=== PATIENT | male | born 1985 | race Caucasian/White ===

== ENCOUNTER 2018-08-08 09:00 | Emergency (ER) | payer BC, OTHER ==
[2018-08-08 09:47] VITALS: BP 145/72
--- NOTE | 2018-08-08 11:10 | UC ---
UC General HPI - HPI Summary HPI Summary: SEEN AT [facility] ER 2 DAYS AGO FOR A WORK INJURY TO R ANKLE. DX WITH A SPRAIN. STATES ADVISED TO TAKE 1-2 DAYS OFF THEN F/U WITH PRIMARY CARE SO CAME HERE. PT ANKLE IN AIRCAST SPLINT AND HE IS USING CRUTHCES. - History of Current Complaint Chief Complaint: UCLowerExtremity Stated Complaint: WC-RT ANKLE INJURY Time Seen by Provider: 08/08/18 10:46 Hx Obtained From: Patient Pain Intensity: 5 Aggravating: MOVEMENT Associated Signs & Symptoms: Negative: Fever - Allergy/Home Medications Allergies/Adverse Reactions: Allergies Allergy/AdvReac Type Severity Reaction Status Date / Time No Known Allergies Allergy Verified 07/22/18 15:05 PMH/Surg Hx/FS Hx/Imm Hx GI/ History: Gastroesophageal Reflux - Surgical History Surgical History: None - Family History Known Family History: Positive: Non-Contributory - Social History Occupation: Employed Full-time Alcohol Use: Rare Substance Use Type: None Smoking Status (MU): Never Smoked Tobacco - Immunization History Vaccination Up to Date: Yes Review of Systems All Other Systems Reviewed And Are Negative: No Constitutional: Positive: Negative Skin: Positive: Negative Eyes: Positive: Negative ENT: Positive: Negative Respiratory: Positive: Negative Cardiovascular: Positive: Negative Gastrointestinal: Positive: Negative Genitourinary: Positive: Negative Motor: Positive: Negative Neurovascular: Positive: Negative Musculoskeletal: Positive: Other: - PAIN/SWELLING R ANKLE Neurological: Positive: Negative Psychological: Positive: Negative Is Patient Immunocompromised?: No Physical Exam Triage Information Reviewed: Yes Appearance: Well-Appearing Vital Signs: Initial Vital Signs Temp 97.4 F 08/08/18 09:44 Pulse 80 08/08/18 09:44 Resp 15 08/08/18 09:44 BP 145/72 08/08/18 09:44 Pulse Ox 99 08/08/18 09:44 Vital Signs Reviewed: Yes Eyes: Positive: Conjunctiva Clear ENT: Positive: Normal ENT inspection Neck: Positive: Supple, Nontender, No Lymphadenopathy Respiratory: Positive: Lungs clear, Normal breath sounds Cardiovascular: Positive: RRR, No Murmur Abdomen Description: Positive: Nontender, No Organomegaly, Soft Bowel Sounds: Positive: Present Musculoskeletal: Positive: Other: - RLE: HIP, KNEE, ACHILLES AND FOOT NON TENDER WITH NO SWELLLING. MEDIAL AND LATERAL ANKLE WITH MILD SWELLING AND TENDERNESS. FOOT HAS FULL S/V/M FUNCTION. Neurological: Positive: Alert Psychological: Positive: Age Appropriate Behavior Skin Exam: Normal Course/Dx - Course Course Of Treatment: PT NEEDS ONGOING CARE AND LIMITATIONS FOR THIS INJURY THUS I WILL REFER TO ORTHOPEDICS. [facility] [place] CALLED BY MYSELF, THEY WILL SEE PT THIS AFTERNOON. PT ADVISED HE WILL NEED ALL THE COMP INFO AND SHOULD CALL THEM NOW WITH THIS PER THE DISTANCE EDUCATION TEACHER REQUEST. PT DENIES HTN, BP VISIT RELATED - Diagnoses Provider Diagnosis: Acute right ankle pain Discharge - Sign-Out/Discharge Documenting (check all that apply): Patient Departure All imaging exams completed and their final reports reviewed: No Studies - Discharge Plan Condition: Stable Disposition: HOME Patient Education Materials: Ankle Sprain (DC) Referrals: Russel Zapata MD [Medical Doctor] - Additional Instructions: FOLLOW UP TODAY AT 1:30 PM SCHEDULED BY THIS [facility]. CALL THEM NOW WITH ALL OF YOUR WORKERS COMPENSATION INFORMATION. THEY NEED IT BEFORE THE APPOINTMENT. CONTINUE THE CRUTCHES AND SPLINT. DO NOT PUT WEIGHT ON THE ANKLE. - Billing Disposition and Condition Condition: STABLE Disposition: Home
== END 2018-08-08 11:06 | disposition home or self-care (01) ==
LOC: UCCORT 09:00
DX: S99.811D Other specified injuries of right ankle, subsequent encounter (principal); X58.XXXD Exposure to other specified factors, subsequent encounter
CPT/HCPCS: 99211; G0463

== ENCOUNTER 2018-08-22 13:43 | Emergency (ER) | payer BC, OTHER ==
--- OUTSIDE RECORDS SUMMARY | 2018-08-22 13:58 | XMS REPORT | Continuity of Care Document ---
:1985 External Reference #:[id number] Author Name Darren Lopez Care Team Providers Name Role Phone David Rubio DO Primary Care Physician Unavailable Payers Type Date Identification Numbers Payment Provider Subscriber Effective: Policy Number: [id number] Workers Compensation Austin Palomo JR 2018 Onset: 2018 PayID: [id number] Effective: 2018 Policy Number: [id number] BS Facets Austin Palomo JR PayID: [id number] [address] [place] [address] Advance Directives Description No Information Available Problems Description No Information Family History Date Family Member(s) Problem(s) Comments General No Current Problems Social History Type Date Description Comments Sex Unknown Marital Status 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 Use Occasionally consumes alcohol Tobacco Use Start: Unknown Patient has never smoked Smoking Status Reviewed: 08/08/18 Patient has never smoked Allergies, Adverse Reactions, Alerts Description No Known Drug Allergies Medications Medication Date Status Form Strength Qnty SIG Indications Ordering Provider Vitamin C Active Capsules 500mg 90caps 1 by mouth Russel Carlton 018 every day MD Jodi Ofloxacin Active Solution 0.3% 3 drops Unknown (Otic) 000 affected ear twice a day x7 days Ibuprofen Active Capsules 200mg as needed Unknown 000 Multivitamin Active Chewtabs once a day Unknown Adult 000 Immunizations Description No Information Available Vital Signs Date Vital Result Comment 08/08/2018 11:38am Height 69 inches 5'9" Weight 212.00 lb BP Systolic Sitting 126 mmHg BP Diastolic Sitting 76 mmHg Respiratory Rate 16 /min Pain Level 9 BMI (Body Mass Index) 31.3 kg/m2 Results Description No Information Available Procedures Description No Information Available Encounters Description No Information Available Plan of Treatment Future Appointment(s):08/15/2018 10:30 am - Russel Zapata MD at [facility] AT [place]/30/2018 - Russel Zapata, [id number] Sprain of unspecified ligament of right ankle, initial encouFollow up:Follow up: 1 week
--- OUTSIDE RECORDS SUMMARY | 2018-08-22 13:58 | XMS REPORT | Continuity of Care Document ---
:1985 External Reference #:[id number] Author Name Stephy Renee Care Team Providers Name Role Phone David Rubio DO Primary Care Physician Unavailable Payers Type Date Identification Numbers Payment Provider Subscriber Effective: Policy Number: [id number] [employer] Austin Palomo JR 2018 PayID: [id number] [address] [address] [place] [id number] Effective: 2018 Policy Number: Workers Compensation Austin Palomo JR [id number] Onset: 2018 PayID: [id number] Advance Directives Description No Information Available Problems Description No Information Family History Date Family Member(s) Problem(s) Comments General No Current Problems Social History Type Date Description Comments Sex Unknown Marital Status 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 Tobacco Use Start: Unknown Patient has never smoked Smoking Status Reviewed: 08/14/18 Patient has never smoked Allergies, Adverse Reactions, [...] Available Vital Signs Date Vital Result Comment 08/14/2018 11:31am Height 69 inches 5'9" Weight 212.00 lb BP Systolic Sitting 126 mmHg BP Diastolic Sitting 68 mmHg Respiratory Rate 17 /min Pain Level 4 BMI (Body Mass Index) 31.3 kg/m2 08/08/2018 11:38am Height 69 inches 5'9" Weight 212.00 lb BP Systolic Sitting 126 mmHg BP Diastolic Sitting 76 mmHg Respiratory Rate 16 /min Pain Level 9 BMI (Body Mass Index) 31.3 kg/m2 Results Description No Information Available Procedures Description No Information Available Encounters Type Date Location Provider Dx Diagnosis Office Visit 08/08/2018 Orthopedic Russel Zapata, S93.401A Sprain of 1:[facility] [place] unspecified [place] ligament of right ankle, init encntr Plan of Treatment Future Appointment(s):09/05/2018 1:45 pm - Russel Zapata MD at [facility] AT [place]29/06/2018 - Russel Zapata, [id number] Sprain of unspecified ligament of right ankle, subsequent enNew Therapy:Physical TherapyFollow up:Follow up: 3 weeks
[2018-08-22 14:06] VITALS: BP 128/71
--- NOTE | 2018-08-22 14:17 | UC ---
UC General HPI - HPI Summary HPI Summary: L EAR DISCOMFORT/PRESSURE X 2 WEEKS. WAS IN ER FOR ANKLE INJURY AND THEY TX THE EAR WITH DROPS BUT STILL NOT BETTER AFTER 2 WEEKS. ADMITS DROPS 4X'S DAILY BUT HE ONLY GETS THEM IN 2X'S DAILY. NO URI OR FEVER. - History of Current Complaint Chief Complaint: UCEar Stated Complaint: LEFT EAR COMPLAINT Time Seen by Provider: 08/22/18 14:10 Hx Obtained From: Patient Onset/Duration: Gradual Onset Timing: Constant Pain Intensity: 4 Associated Signs & Symptoms: Negative: Fever, Headache - Allergy/Home Medications Allergies/Adverse Reactions: Allergies Allergy/AdvReac Type Severity Reaction Status Date / Time No Known Allergies Allergy Verified 07/22/18 15:05 PMH/Surg Hx/FS Hx/Imm Hx GI/ History: Gastroesophageal Reflux - Surgical History Surgical History: None - Family History Known Family History: Positive: Non-Contributory - Social History Lives: With Family Alcohol Use: Rare Substance Use Type: None Smoking Status (MU): Never Smoked Tobacco - Immunization History Vaccination Up to Date: Yes Review of Systems All Other Systems Reviewed And Are Negative: Yes Constitutional: Positive: Negative Skin: Positive: Negative Eyes: Positive: Negative ENT: Positive: Ear Ache - L Respiratory: Positive: Negative Cardiovascular: Positive: Negative Gastrointestinal: Positive: Negative Genitourinary: Positive: Negative Motor: Positive: Negative Neurovascular: Positive: Negative Neurological: Positive: Negative Psychological: Positive: Negative Physical Exam Triage Information Reviewed: Yes Appearance: Well-Appearing Vital Signs: Initial Vital Signs Temp 99.0 F 08/22/18 14:03 Pulse 74 08/22/18 14:03 Resp 16 08/22/18 14:03 BP 128/71 08/22/18 14:03 Pulse Ox 98 08/22/18 14:03 Vital Signs Reviewed: Yes Eyes: Positive: Conjunctiva Clear ENT: Positive: Pharynx normal, TMs normal - R, TM red - L(slight) with slight canal erythema as well., Other - no auricular adenopathy.. Negative: Nasal congestion, Nasal drainage Neck: Positive: Supple, Nontender, No Lymphadenopathy Respiratory: Positive: Lungs clear, Normal breath sounds Cardiovascular: Positive: RRR, No Murmur Abdomen Description: Positive: Nontender, No Organomegaly, Soft Bowel Sounds: Positive: Present Musculoskeletal: Positive: ROM Intact Neurological: Positive: Alert Psychological: Positive: Age Appropriate Behavior Skin Exam: Normal Course/Dx - Course Course Of Treatment: will cover for OM and OE. will d/c prior ear drops and tx with ciprodex and amoxicillin. - Diagnoses Provider Diagnosis: Otalgia of left ear Discharge - Sign-Out/Discharge Documenting (check all that apply): Patient Departure All imaging exams completed and their final reports reviewed: No Studies - Discharge Plan Condition: Stable Disposition: HOME Prescriptions: Amoxicillin PO (*) [Amoxicillin 875 MG (*)] 875 mg PO BID 7 Days #14 tab Ciproflox/Dexameth OTIC.SUSP* [Ciprodex OTIC.SUSP*] 4 drop .SEE ORDER BID #1 btl Patient Education Materials: Earache (ED) Referrals: David Rubio DO [Primary Care Provider] - 7 Days Additional Instructions: STOP THE CURRENT EAR DROPS - Billing Disposition and Condition Condition: STABLE Disposition: Home
== END 2018-08-22 15:23 | disposition home or self-care (01) ==
LOC: UCCORT 13:43
DX: H92.02 Otalgia, left ear (principal)
CPT/HCPCS: 99212; G0463

== ENCOUNTER 2019-07-25 17:21 | Emergency (ER) | payer BC, OTHER ==
--- OUTSIDE RECORDS SUMMARY | 2019-07-25 17:29 | XMS REPORT | Continuity of Care Document ---
:1985 External Reference #:[id number] Author Name FANY Rivera Address [address] [place] [address] Problems Description No Information Available Social History Type Date Description Comments Sex Unknown Tobacco Use Start: Unknown Patient has never smoked Smoking Status Reviewed: 10/01/18 Patient has never smoked Seat Belt/Car Seat Always uses seat belt Allergies, Adverse Reactions, Alerts Description No Known Drug Allergies Medications Active Medications SIG Qnty Indications Ordering Provider Date Esomeprazole 1 by mouth every 90caps K29.00 David H. 05/20/2017 Magnesium day Tunick, DO 40mg Capsules DR Vitamin D 1 by mouth every Unknown (Cholecalciferol) day 1000Unit Capsules Vitamin C 1 by mouth twice Unknown 1000mg a day Tablets Multivitamin Adult 1 by mouth every Unknown day Tablets Fish Oil 1 by mouth as Unknown Capsules directed Immunizations CPT Code Status Date Vaccine Lot # [id number] Given 04/10/2019 Adacel (TdaP) [id number] Vital Signs Date Vital Result Comment 07/19/2019 12:33pm Weight 209.12 lb Height 69 inches 5'9" BP Systolic 118 mmHg LG Cuff BP Diastolic 64 mmHg LG Cuff Body Temperature 97.8 F Heart Rate 54 /min BMI (Body Mass Index) 30.9 kg/m2 Z68.30 A, 30.0-30.9 O2 % BldC Oximetry 95 % 11/23/2018 11:11am Weight 221.50 lb Height 69 inches 5'9" BP Systolic 110 mmHg lg cuff BP Diastolic 70 mmHg lg cuff Body Temperature 97.1 F Heart Rate 50 /min BMI (Body Mass Index) 32.7 kg/m2 Z68.32 A, 32.0-32.9 O2 % BldC Oximetry 96 % Results Description No Information Available Procedures Description No Information Available Medical Devices Description No Information Available Encounters Type Date Location Provider Dx Diagnosis Office Visit 07/19/2019 Walk-In,Weekend Petra Rosariojay J00 Acute nasopharyngitis 12:10p [facility] [common cold] Z68.30 Body mass index (BMI) 30.0-30.9, adult Assessments Date Code Description Provider 07/19/2019 J00 Acute nasopharyngitis [common cold] PetraKATY EstradaC 07/19/2019 Z68.30 Body mass index (BMI) 30.0-30.9, adult FANY Rivera 04/10/2019 Z23 Encounter for immunization David Rubio, DO Plan of Treatment 07/19/2019 - TRISTON Rivera-CJ00 Acute nasopharyngitis [common cold]Comments: Strep negative.Recommend supportive measures: Cool mist humidified air, Saline to nose, Honey for cough, Increase fluid intake and rest as much as possible with head elevated.May use Mucinex, Tylenol, Motrin as directed. Follow up with PCP within 1 week if s/s worsen/persist.Z68.30 Body mass index (BMI) 30.0-30.9, adult Functional Status Description No Information Available Mental Status Description No Information Available Referrals Description No Information Available
[2019-07-25 17:48] VITALS: BP 129/77
[2019-07-25] MEDS ORDERED: Amoxicillin PO (*) 500 MG CAP PO ONE (19:10)
[2019-07-25] MEDS ORDERED: Ibuprofen TAB* 600 MG PO ONE (19:10)
--- NOTE | 2019-07-25 19:15 | UC ---
Throat Pain/Nasal Paul HPI - HPI Summary HPI Summary: C/O URI sx x 10 days now with worsening frontal sinus pain and chills. No SOB with cough. - History of Current Complaint Chief Complaint: UCGeneralIllness Stated Complaint: HEADACHE, SINUS PRESSURE, WEAK,COUGH Time Seen by Provider: 07/25/19 19:01 Hx Obtained From: Patient Onset/Duration: Sudden Onset, Lasting Days - 10, Worse Since - today Severity: Moderate Pain Intensity: 7 Cough: Nonproductive Associated Signs & Symptoms: Positive: Sinus Discomfort, Nasal Discharge, Fever - Allergies/Home Medications Allergies/Adverse Reactions: Allergies Allergy/AdvReac Type Severity Reaction Status Date / Time No Known Allergies Allergy Verified 07/25/19 17:48 Home Medications: Home Medications Dm/Acetaminophen/Doxylamine [Night Cold-Flu Relief Liq Gel] 1 each PO DAILY [History Confirmed 07/25/19] Multivitamin [Multivitamins] 1 each PO DAILY 07/25/19 [History Confirmed ] [place]-3/Dha/Epa/Fish Oil [Fish Oil 1,000 mg Softgel] 1,000 mg PO DAILY 07/25/19 [History Confirmed 07/25/19] PMH/Surg Hx/FS Hx/Imm Hx Previously Healthy: Yes - Surgical History Surgical History: None - Family History Known Family History: Positive: Diabetes, Non-Contributory - Social History Occupation: Employed Full-time Lives: With Family Alcohol Use: Rare Substance Use Type: None Smoking Status (MU): Never Smoked Tobacco - Immunization History Vaccination Up to Date: Yes Review of Systems All Other Systems Reviewed And Are Negative: Yes Constitutional: Positive: Fever, Chills, Fatigue ENT: Positive: Nasal Discharge, Sinus Pain/Tenderness Respiratory: Positive: Cough Physical Exam Triage Information Reviewed: Yes Appearance: Well-Nourished, Ill-Appearing, Pain Distress - mild Vital Signs: Initial Vital Signs Temp 99.7 F 07/25/19 17:45 Pulse 82 07/25/19 17:45 Resp 16 07/25/19 17:45 BP 129/77 07/25/19 17:45 Pulse Ox 100 07/25/19 17:45 Vital Signs Reviewed: Yes Eyes: Positive: Conjunctiva Clear ENT: Positive: Pharynx normal - with purulent PND, Nasal congestion, TMs normal Neck exam: Normal Respiratory Exam: Normal Cardiovascular Exam: Normal Musculoskeletal Exam: Normal Neurological Exam: Normal Psychological Exam: Normal Skin Exam: Normal Throat Pain/Nasal Course/Dx - Differential Dx/Diagnosis Differential Diagnosis/HQI/PQRI: Otitis Media, Pharyngitis, Sinusitis, URI Provider Diagnosis: Acute bacterial sinusitis Discharge ED - Sign-Out/Discharge Documenting (check all that apply): Patient Departure All imaging exams completed and their final reports reviewed: No Studies - Discharge Plan Condition: Stable Disposition: HOME Prescriptions: Amoxicillin PO (*) [Amoxicillin 875 MG (*)] 875 mg PO BID #20 tab Patient Education Materials: Sinusitis (ED), Amoxicillin (By mouth) Referrals: David Rubio DO [Primary Care Provider] - Additional Instructions: NASAL SPRAYS AND DROPS: Afrin in the PUMP/ MIST bottle (Get generic 12 hours nasal decongestant spray). Tilt your head down and look at the floor while doing the spray, "nose to toes". Decongestant nasal sprays and drops often give dramatic relief from congestion. They are often recommended for patients with sinus infection to assist with sinus drainage. Persons with high blood pressure should consult the doctor before using these nasal sprays. Afrin and Pedro-Synephrine are common [id number] preparations. They should not be used for more than five days, as "rebound" congestion can occur - - the congestion flares as the drug wears off. A way of dealing with this rebound congestion problem is to medicate only one nostril each time, allowing the other nostril to recover from the medicine' s effects. When you no longer need the drug during the day, spray only one nostril each night. This helps you sleep well without severe rebound congestion. Call the doctor if you develop severe headache, palpitations, or chest pain. - Billing Disposition and Condition Condition: STABLE Disposition: Home
== END 2019-07-25 19:23 | disposition home or self-care (01) ==
LOC: UCCORT 17:21
DX: J01.90 Acute sinusitis, unspecified (principal); B96.89 Other specified bacterial agents as the cause of diseases classified elsewhere; R53.83 Other fatigue
CPT/HCPCS: 99212; A9270-GY; G0463